=== PATIENT | male | born 1985 | race Native Hawaiian/Other Pacific Islander ===

== ENCOUNTER 2016-10-13 00:21 | Emergency (ER) | payer OTHER ==
[2016-10-13 00:54] VITALS: BP 139/84
--- NOTE | 2016-10-13 03:10 | Emergency Department Report ---
ED General Adult HPI - General Chief complaint: Skin/Abscess/Foreign Body Stated complaint: WART LF LEG W/BLEEDING Time Seen by Provider: 10/13/16 02:22 Source: patient Mode of arrival: Ambulatory Limitations: No Limitations - History of Present Illness Initial comments: This is a 30-year-old male that presents with a skin tag in the left inner thigh for the past 2 months. Patient's associated symptoms including pain with minimal bleeding. Patient denies any numbness or tingling sensation in extremities. Denies fever or chills. Denies chest pain, shortness of breath, abdominal pain. Patient does not seem toxic or ill in appearance. No signs of distress noted. MD Complaint: skin tag -: Gradual, month(s) (2) Location: lower extremity (left thigh) Radiation: non-radiation Severity scale (0 -10): 9 Quality: aching Consistency: constant Improves with: none Worsens with: none Associated Symptoms: denies other symptoms. denies: confusion, chest pain, cough, diaphoresis, fever/chills, headaches, loss of appetite, malaise, nausea/ vomiting, rash, seizure, shortness of breath, syncope, weakness Treatments Prior to Arrival: none - Related Data Home Medications Medication Instructions Recorded Confirmed Last Taken No Known Home Medications [No 10/13/16 10/13/16 Unknown Reported Home Medications] Allergies Allergy/AdvReac Type Severity Reaction Status Date / Time No Known Allergies Allergy Unverified 10/13/16 00:54 ED Review of Systems ROS: Stated complaint: WART LF LEG W/BLEEDING Other details as noted in HPI Constitutional: denies: chills, fever Eyes: denies: eye pain, eye discharge, vision change ENT: denies: ear pain, throat pain Respiratory: denies: cough, shortness of breath, wheezing Cardiovascular: denies: chest pain, palpitations Endocrine: no symptoms reported Gastrointestinal: denies: abdominal pain, nausea, diarrhea Genitourinary: denies: urgency, dysuria Musculoskeletal: denies: back pain, joint swelling, arthralgia Skin: other (1 cm skin tag, left inner thigh). denies: rash, lesions, change in color, change in hair/nails, pruritus Neurological: denies: headache, weakness, paresthesias Psychiatric: denies: anxiety, depression Hematological/Lymphatic: denies: easy bleeding, easy bruising ED Past Medical Hx - Past Medical History Previous Medical History?: No - Surgical History Past Surgical History?: No - Social History Smoking Status: Never Smoker Substance Use Type: None - Medications Home Medications: Home Medications Medication Instructions Recorded Confirmed Last Taken Type No Known Home Medications [No 10/13/16 10/13/16 Unknown History Reported Home Medications] ED Physical Exam - General Limitations: No Limitations General appearance: alert, in no apparent distress - Head Head exam: Present: atraumatic, normocephalic - Eye Eye exam: Present: normal appearance - ENT ENT exam: Present: mucous membranes moist - Neck Neck exam: Present: normal inspection - Respiratory Respiratory exam: Present: normal lung sounds bilaterally. Absent: respiratory distress - Cardiovascular Cardiovascular Exam: Present: regular rate, normal rhythm. Absent: systolic murmur, diastolic murmur, rubs, gallop - GI/Abdominal GI/Abdominal exam: Present: soft, normal bowel sounds - Rectal Rectal exam: Present: deferred - Extremities Exam Extremities exam: Present: normal inspection - Back Exam Back exam: Present: normal inspection - Neurological Exam Neurological exam: Present: alert, oriented X3 - Psychiatric Psychiatric exam: Present: normal affect, normal mood - Skin Skin exam: Present: warm, dry, intact, normal color, other (1 cm skin tag, left inner thigh). Absent: rash, cyanosis, diaphoretic, erythema, urticaria, vesicles, petechiae, pallor, abrasion, ecchymosis ED Course Vital Signs 10/13/16 00:47 Temperature 98.6 F Pulse Rate 67 Respiratory 16 Rate Blood Pressure 139/84 Blood Pressure 139/84 [Left] O2 Sat by Pulse 99 Oximetry ED Medical Decision Making - Medical Decision Making ED course: This is a 30-year-old male that presents with a 1 cm acrochordon to the left inner thigh I instructed the patient to follow-up with a top tile decorator for examination and evaluation of the skin tag. I notified the patient that there is positive may biopsy the skin tag. At the time of discharge the patient does not seem toxic or ill in appearance. No signs of distress noted. Patient received discharge plan. No further questions noted by the patient. Critical care attestation.: If time is entered above; I have spent that time in minutes in the direct care of this critically ill patient, excluding procedure time. ED Disposition Clinical Impression: Acrochordon Disposition: DISCHARGED TO HOME OR SELFCARE Is pt being admited?: No Does the pt Need Aspirin: No Condition: Stable Additional Instructions: Please follow up with a top tile decorator for possibility of biopsy of a skin tag. Referrals: PRIMARY CARE, [Primary Care Provider] - 3-5 Days MAGALIS BERGMAN MD [Referring] - 3-5 Days TREMAINE HEAD MD [Referring] - 3-5 Days [facility] [Outside] - 3-5 Days JOE FLOYD MD [Staff Physician] - 3-5 Days RILEY MCLAUGHLIN MD [Staff Physician] - 3-5 Days [facility] [Referring] - 3-5 Days Forms: Work/School Release Form(ED)
== END 2016-10-13 03:39 | disposition home or self-care (01) ==
LOC: ED 00:21
DX: L91.8 Other hypertrophic disorders of the skin (principal)
CPT/HCPCS: 99282